=== PATIENT | male | born 1960 | race African-American/Black ===

== ENCOUNTER 2017-02-11 00:11 | Emergency (ER) | payer SELFPAY ==
[2017-02-11 02:14] VITALS: BP 110/78
== END 2017-02-11 02:14 | disposition home or self-care (01) ==
LOC: ED 00:11
DX: L89.899 Pressure ulcer of other site, unspecified stage (principal); L84 Corns and callosities; R60.0 Localized edema; E74.01 von Gierke disease; Z59.0 Homelessness
CPT/HCPCS: 90715